=== PATIENT | female | born 1995 | race Caucasian/White ===

== ENCOUNTER 2017-01-10 12:44 | Outpatient (CLI) | payer SELFPAY ==
[2017-01-10 13:06] VITALS: BP 114/72
--- NOTE | 2017-01-11 07:27 | Ultrasound Report ---
BIOPHYSICAL PROFILE: Technique: Transabdominal ultrasound with Doppler interrogation. 0 - breathing movements 2 - movements 2 - posture and tone 2 - Qualitative amniotic fluid volume 6 - TOTAL SCORE OF POSSIBLE 8 Heart Rate (bpm) 141
--- NOTE | 2017-01-11 07:28 | Ultrasound Report ---
OB LIMITED Technique: Transabdominal ultrasound with Doppler interrogation. Gestation: Single Position: Cephalic Amniotic Fluid: Normal DWAINE = 14.1 cm Heart Rate: 163 BPM
== END 2017-01-10 15:45 | disposition home or self-care (01) ==
LOC: TRG 12:44
PROVIDERS: ATTEND Specialist
DX: O48.0 Post-term pregnancy (principal); O47.1 False labor at or after 37 completed weeks of gestation; Z3A.40 40 weeks gestation of pregnancy
CPT/HCPCS: 59025; 76815; 76819